=== PATIENT | male | born 1965 | race Two or more races ===

== ENCOUNTER 2020-07-18 04:17 | Emergency (ER) | payer BC ==
--- NOTE | 2020-07-18 04:23 | ED Physician Documentation ---
PD HPI CHEST PAIN - Stated complaint Stated Complaint: CHEST PX - History obtained from History obtained from: Patient - History of Present Illness Timing - onset: How many hours ago (9), Last night (in evening after dinner about 6-7 pm, with feeling of discomfort/aching, that persisted waxing/waning overnight. He could not sleep. No change with position. Not pleuritic. Finally here for eval this morning.) Timing - onset during: Rest Timing - details: Abrupt onset, Still present (more consistent the past 1-2 hours.), Waxing and waning Quality: Pressure, Tightness, Aching Location: Substernal Radiation: No: Jaw, Neck, Back Improved by: No: Rest Worsened by: No: Inspiration, Movement, Palpation Associated symptoms: Feeling faint / dizzy. No: Shortness of air, Nausea, Palpitations, Cough Similar symptoms before: Diagnosis (had smilar episode 5 years ago and was transferred to [facility] for evaluation. We don't have summary at this time. Patient states did not get stent or such. He is not sure of diagnosis.) Recently seen: Not recently seen Review of Systems Constitutional: denies: Fever, Chills Nose: denies: Rhinorrhea / runny nose, Congestion Throat: denies: Sore throat Respiratory: denies: Cough Musculoskeletal: denies: Back pain Neurologic: reports: Generalized weakness. denies: Focal weakness, Numbness, Near syncope PD PAST MEDICAL HISTORY - Past Medical History Cardiovascular: Hypertension Respiratory: None Neuro: None Endocrine/Autoimmune: Type 2 diabetes Derm: Psoriasis - Past Surgical History Past Surgical History: No - Present Medications Home Medications: Ambulatory Orders Medication Instructions Recorded Confirmed Adalimumab [Humira] 40 mg SUBQ TITR 11/14/14 11/14/14 Calcipotriene/Betamethasone 1 unit TOP BID 11/14/14 11/14/14 [Taclonex Ointment] Ciprofloxacin HCl [Cipro] 500 mg ORAL BID 11/14/14 11/14/14 Tamsulosin [Flomax] 0.4 mg ORAL DAILY 11/14/14 11/14/14 metFORMIN [Glucophage] 500 mg ORAL DAILY 11/14/14 11/14/14 - Allergies Allergies/Adverse Reactions: Allergies Allergy/AdvReac Type Severity Reaction Status Date / Time No Known Drug Allergies Allergy Verified 09/01/15 08:29 - Social History Does the pt smoke?: No Smoking Status: Never smoker Does the pt drink ETOH?: Yes Does the pt have substance abuse?: No - Immunizations Immunizations are current?: Yes PD ED PE NORMAL - Vitals Vital signs reviewed: Yes - General General: Alert and oriented X 3, Well developed/nourished, Other (seems somewhat uncomfortable) - HEENT HEENT: Pharynx benign - Neck Neck: Supple, no meningeal sign, No adenopathy - Cardiac Cardiac: RRR, No murmur - Respiratory Respiratory: Clear bilaterally, Other (no chestwall tenderness) - Abdomen Abdomen: Normal bowel sounds, Soft, Non tender, Non distended - Back Back: No CVA TTP - Derm Derm: Normal color, Warm and dry - Extremities Extremities: Normal ROM s pain, No edema, No calf tenderness / cord - Neuro Neuro: Alert and oriented X 3, No motor deficit, Normal speech Results - Vitals Vitals: Vital Signs - 24 hr 07/18/20 04:22 Temperature 36.3 C L Heart Rate 96 Respiratory 24 Rate Blood Pressure 183/114 H O2 Saturation 96 Oxygen O2 Source Room air - EKG (time done) on arrival Rhythm: NSR Intervals: Normal [place] Ischemia: ST elevation c/w ischemia (inferior leads II, III, F, with anterior reciprocal ischemic changes. ), ST depression - Rads (name of study) chest xray Radiology: Prelim report reviewed, EMP read contemporaneously (no acute process, no infiltrates nor PTX), See rad report PD MEDICAL DECISION MAKING - ED course Complexity details: re-evaluated patient, considered differential (Patient presents with chest pain since last evening that has worsened the last couple of hours. EKG on presentation shows apparent inferior STEMI. The patient is treated with typical protocol medications of aspirin, Plavix, nitro, heparin, and Metoprolol (BP and HR adequate). ), d/w patient, d/w consultant intern ([facility] attending, who agrees with ECG interpretation faxed over. ) - Critical Care Time(min): 35 Time Includes: Direct patient care, Reassess patient, Document care, Coordinate care Data interpretation: Pulse ox, CXR, Prior EKG Procedures excluded from critical care time: EKG Departure - Departure Disposition: 02 Transfer Acute Care Hosp Clinical Impression: Subsequent ST elevation (STEMI) myocardial infarction of inferior wall
[2020-07-18] MEDS ORDERED: MAG HYDROX/AL HYDROX/SIMETH 30 ML UDC PO STA (04:34)
[2020-07-18] MEDS ORDERED: ASPIRIN CHEW 81 MG TABLET PO STA (04:34)
[2020-07-18] MEDS ORDERED: SODIUM CHLORIDE 0.9% 1,000 ML IV STA (04:35)
[2020-07-18] MEDS ORDERED: CLOPIDOGREL 300 MG TABLET PO STA (04:35)
[2020-07-18] MEDS ORDERED: METOPROLOL 5 MG/5 ML VIAL IVP STA (04:39)
[2020-07-18 04:47] LABS: BASOPHILS # (AUTO) 0.1 10^3/uL (0.0-0.1); EOSINOPHILS # (AUTO) 0.1 10^3/uL (0.0-0.7); EOSINOPHILS % (AUTO) 0.7 %; HCT - HEMATOCRIT 53.6 % (42.0-52.0); HGB - HEMOGLOBIN 18.9 g/dL (14.0-18.0); LYMPHOCYTES # (AUTO) 1.5 10^3/uL (1.5-3.5); MEAN CORPUSCULAR HEMOGLOBIN 29.1 pg (27.0-31.0); MEAN CORPUSCULAR HGB CONC 35.3 g/dL (32.0-36.0); MEAN CORPUSCULAR VOLUME 82.5 fL (80.0-94.0); MEAN PLATELET VOLUME 10.3 fL (7.4-11.4); MONOCYTES # (AUTO) 0.4 10^3/uL (0.0-1.0); MONOCYTES % (AUTO) 4.9 %; NEUTROPHILS # (AUTO) 5.3 10^3/uL (1.5-6.6); NEUTROPHILS % (AUTO) 72.7 %; PLT - PLATELET COUNT 257 10^3/uL (130-450); RED CELL DISTRIBUTION WIDTH 12.8 % (12.0-15.0); WHITE BLOOD COUNT 7.3 x10^3/uL (4.8-10.8)
[2020-07-18 04:58] VITALS: BP 164/119
[2020-07-18 04:58] LABS: ALBUMIN 4.7 g/dL (3.2-5.5); ALBUMIN/GLOBULIN RATIO 1.4 (1.0-2.2); BILIRUBIN,TOTAL 1.3 mg/dL (0.2-1.0); CALCIUM 9.6 mg/dL (8.5-10.3); CREATININE 1.4 mg/dL (0.6-1.2); POTASSIUM 3.9 mmol/L (3.5-5.0)
[2020-07-18] MEDS ORDERED: NITROGLYCERIN 50 MG/250 ML 50 MG/250 ML BOTTLE IV SCH (05:00)
[2020-07-18] MEDS ORDERED: HEPARIN 25000UNITS/500ML (D5W) 25,000 UNIT/500 ML BAG IV SCH (05:00)
[2020-07-18 05:46] LABS: B. PARAPERTUSSIS- RESP PCR PAN NOT DETECTED; B. PERTUSSIS- RESP PCR PANEL NOT DETECTED; C. PNEUMONIAE- RESP PCR PANEL NOT DETECTED; CORONAVIRUS 229E-RESP PCR NOT DETECTED; CORONAVIRUS HKU1-RESP PCR NOT DETECTED; CORONAVIRUS NL63-RESP PCR NOT DETECTED; CORONAVIRUS OC43-RESP PCR NOT DETECTED; HUMAN METAPNEUMOVIRUS NOT DETECTED; INFLUENZA A- RESP PCR PANEL NOT DETECTED; INFLUENZA B - RESP PCR PANEL NOT DETECTED; M. PNEUMONIAE- RESP PCR PANEL NOT DETECTED; PARAINFLUENZA VIRUS 1 NOT DETECTED; PARAINFLUENZA VIRUS 2 NOT DETECTED; PARAINFLUENZA VIRUS 3 NOT DETECTED; PARAINFLUENZA VIRUS 4 NOT DETECTED; RHINOVIRUS/ENTEROVIRUS NOT DETECTED; RSV- RESP PCR PANEL NOT DETECTED; SARS-CoV-2 -RESP PCR PANEL NOT DETECTED
--- NOTE | 2020-07-18 09:03 | XRAY Report ---
PROCEDURE: Chest 1 View X-Ray INDICATIONS: Chest Pain TECHNIQUE: One view of the chest was acquired. COMPARISON: 11/14/2014 FINDINGS: Surgical changes and devices: None. Lungs and pleura: No pleural effusions or pneumothorax. Scattered subsegmental scarring/atelectasis . No acute consolidation. Mediastinum: Mediastinal contours appear normal. Heart size is normal. Bones and chest wall: No suspicious bony lesions. Overlying soft tissues appear unremarkable. IMPRESSION: No acute disease Reviewed by: Bryon Spangler MD on 07/18/2020 9:02 AM PDT Approved by: Bryon Spangler MD on 07/18/2020 9:02 AM PDT Station ID: [id number]
== END 2020-07-18 05:00 | disposition short-term general hospital (02) ==
LOC: ED 04:17
DX: I21.3 ST elevation (STEMI) myocardial infarction of unspecified site (principal); I10 Essential (primary) hypertension; E11.9 Type 2 diabetes mellitus without complications; Z79.84 Long term (current) use of oral hypoglycemic drugs; Z20.822 Contact with and (suspected) exposure to COVID-19
CPT/HCPCS: 0202U; 36415; 71045; 80053; 83690; 83880; 84484; 85025; 93005; 96374; 96375; 99285; 99291; A9270

== ENCOUNTER 2020-07-18 05:04 | Outpatient (CLI) | payer BC | END 2020-07-18 05:05 | disposition short-term general hospital (02) | LOC: EMS 05:04 | PROVIDERS: ATTEND Emergency Medicine | DX: I21.19 ST elevation (STEMI) myocardial infarction involving other coronary artery of inferior wall (principal) | CPT/HCPCS: A0425; A0426 ==